=== PATIENT | female | born 1960 | race Caucasian/White ===

== ENCOUNTER 2016-06-20 12:11 | Emergency (ER) | payer OTHER ==
[2016-06-20 13:00] VITALS: BP 152/82; PULSE 81; RESP 16; TEMP 98.1; O2SAT 97
--- NOTE | 2016-06-20 15:02 | UCPHY ---
H & P Time Seen by Provider: 06/20/16 14:07 Patient Type: New HPI/ROS: CHIEF COMPLAINT: Bleeding wound to back HISTORY OF PRESENT ILLNESS: 55-year-old female presents with concerns about a wound to her back continues to bleed. She states it is been present intermittently for the last 5 weeks. She denies any known trauma or injury although she states that sometimes it will just bleeds per adequately. She does stated number of years ago she had a mole biopsy in this area. She states that she is having difficulty stopping the bleeding. She has only minimal pain associated with this. ROS: Denies redness or warmth or fever. Past Medical/Surgical History: Postmenopausal Social History: Smoking Status: Never smoked Physical Exam: On examination the patient has a lesion to the right upper back that has an area of associated bloody fluid which is in of fluid-filled sac. And has a thick base measuring about 1 cm in diameter. There is no surrounding redness. There is slow active bleeding noted. Full range of motion of the upper extremities. Constitutional: Initial Vital Signs Temperature (C) 36.7 C 06/20/16 12:56 Heart Rate 81 06/20/16 12:56 Respiratory Rate 16 06/20/16 12:56 Blood Pressure 152/82 H 06/20/16 12:56 O2 Sat (%) 97 06/20/16 12:56 O2 Delivery Mode Room Air Allergies/Adverse Reactions: No Known Allergies Allergy (Verified 06/20/16 12:59) Home Medications: Medication Instructions Recorded Remeron 06/20/16 MDM/Departure - MDM Procedures: After consent was obtained from the patient, 1% lidocaine with epinephrine was instilled into the wound. The fluid filled bloody sac was easily removed with scalpel. Slow active bleeding noted at the base. Silver nitrate strips were used to cauterize the area and there was no further bleeding. Surgicel and dressing applied. This was performed by myself. The patient tolerated this quite well. ED Course/Re-evaluation: 55-year-old female presents to the emergency department with bleeding wound to her upper back which she requests to be removed. The lesion was removed in silver nitrate was used to cauterize the wound. No further bleeding noted. Patient's tetanus shot is current. 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 The case was discussed with Dr. Varun Castellanos, secondary supervising physician, who did not directly evaluate the patient but agrees with treatment and plan. - Depart Disposition: Home, Routine, Self-Care Clinical Impression: Skin growth Condition: Good Instructions: Acute Wounds (ED) Additional Instructions: Return to the emergency department if you develop any signs or symptoms of infection such as redness, swelling, increased pain, fever, purulent drainage. You should have a wound check with your primary care provider in 1-2 days. Referrals: LAVINIA PATEL [Primary Care Provider] - 1-2 days without fail - PQRS PQRS Measurement: Not applicable
== END 2016-06-20 15:10 | disposition home or self-care (01) ==
LOC: CED 12:11
PROC: 0HB6XZZ Excision of Back Skin, External Approach (ICD-10-PCS; principal; 2016-06-20)
DX: L72.9 Follicular cyst of the skin and subcutaneous tissue, unspecified (principal)
CPT/HCPCS: G0463-PO